=== PATIENT | female | born 1940 | race Caucasian/White ===

== ENCOUNTER 2016-05-14 09:35 | Observation (INO) | payer OTHER ==
[~2016-05-14] VITALS: Ht 165.1 cm; Wt 75.9 kg
[~2016-05-14 09:35] MED LIST: ALEVE220 M2 PO; AMLODIPINE BESY10 MG PO; ASPIR-LOW81 MG PO; ATORVASTATIN CA40 MG PO; CALCIUM500 M4 PO; CLOPIDOGREL75 MG PO; COZAAR25 MG PO; CRAMP TABLET1 EACH PO; LISINOPRIL20 MG PO; LOPRESSOR50 MG PO; OMEPRAZOLE40 M1 PO; PRAVASTATIN SOD40 MG PO; PRAVASTATIN SOD80 MG PO; PRINIVIL20 MG PO; SALINE NASAL SP45 ML BOTH NARES; SYNTHROID75 MCG PO; VITAMIN D31000 UNI2 PO; VITAMIN D31000 UNIT PO
[2016-05-14 09:38] VITALS: BP 149/78
[2016-05-14 10:07] LABS: EOSINOPHIL (%) 6.9 % (0-5); EOSINOPHIL COUNT 0.6 K/uL (0-0.3); HEMATOCRIT 41.3 % (36.0-46.0); IMMATURE GRANULOCYTE (%) 0.2 % (0.0-0.7); IMMATURE GRANULOCYTE COUNT 0.2 K/uL; LYMPHOCYTE COUNT 1.2 K/uL (1.0-2.8); MCH 30.7 PG (29.0-34.0); MCHC 33.4 G/DL (30.0-36.0); MCV 91.8 FL (83-99); MEAN PLAT.VOLUME 9.5 uM^3 (9.5-12.4); MONOCYTE COUNT 0.6 K/uL (0-0.8); NEUTROPHIL (%) 71.7 % (45-76); NEUTROPHIL COUNT 6.2 K/uL (1.8-6.4); PLATELET COUNT 270 K/uL (156-360); RBC DIS.WIDTH-CV 13.5 % (11.8-14.6); RBC DIS.WIDTH-SD 44.3 % (39-53); WHITE BLOOD COUNT 8.7 K/uL (4.1-10.2)
[2016-05-14 10:19] LABS: CHLORIDE 110 mEq/L (99-109); SODIUM 143 mEq/L (136-147)
[2016-05-14 10:21] LABS: GLUCOSE 135 mg/dL (70-99)
[2016-05-14 10:22] LABS: ANION GAP 13 MEQ/L (2-14)
[2016-05-14 10:24] LABS: GFR ESTIMATE (CALCULATED) 39 mL/min/
[2016-05-14 10:25] LABS: UREA NITROGEN (BUN) 29 mg/dL (9-23)
[2016-05-14 10:28] LABS: TROP-I INTERPRETATION NEGATIVE; TROPONIN-I 0.01 ng/mL (0.0-0.30)
[2016-05-14 10:49] VITALS: BP 142/82
[2016-05-14] MEDS ORDERED: NORVASC10 MG PO (11:31)
[2016-05-14] MEDS ORDERED: ASPIR-LOW81 MG PO (11:32)
[2016-05-14] MEDS ORDERED: VIACTIV SOFT C1 EACH PO (11:34)
[2016-05-14] MEDS ORDERED: CLOPIDOGREL75 MG PO (11:36)
[2016-05-14] MEDS ORDERED: LOPRESSOR50 MG PO (11:37)
[2016-05-14] MEDS ORDERED: LOSARTAN POTASS25 MG PO (11:38)
[2016-05-14 12:00] VITALS: BP 144/84
[2016-05-14 13:00] VITALS: BP 144/70
[2016-05-14 15:45] VITALS: BP 130/59
[2016-05-14 18:53] LABS: TROP-I INTERPRETATION NEGATIVE; TROPONIN-I 0.02 ng/mL (0.0-0.30)
[2016-05-14 20:00] VITALS: BP 122/60
[2016-05-15 00:13] VITALS: BP 134/60
[2016-05-15 01:34] LABS: TROP-I INTERPRETATION NEGATIVE; TROPONIN-I 0.02 ng/mL (0.0-0.30)
[2016-05-15 06:41] LABS: ANION GAP 10 MEQ/L (2-14); CHLORIDE 109 MEQ/L (99-109); GFR ESTIMATE (CALCULATED) 46 mL/min/; POTASSIUM 4.3 MEQ/L (3.7-5.4); SAMPLE HEMOLYSIS CHECK 1; SAMPLE ICTERIC CHECK 0; SAMPLE LIPEMIA CHECK 0; SODIUM 141 MEQ/L (136-147); UREA NITROGEN (BUN) 25 mg/dL (9-23)
[2016-05-15 06:46] LABS: GLUCOSE 100 mg/dL (70-99)
[2016-05-15 12:08] VITALS: BP 122/61
== END 2016-05-15 13:09 | disposition home or self-care (01) ==
LOC: EME 09:35 → EDOF 11:34 → 5WEST 15:41
PROVIDERS: Emergency Medicine; Internal Medicine
DX: R55 Syncope and collapse (principal); I10 Essential (primary) hypertension; E03.9 Hypothyroidism, unspecified; E78.5 Hyperlipidemia, unspecified; N17.9 Acute kidney failure, unspecified; K58.9 Irritable bowel syndrome, unspecified; Z86.73 Personal history of transient ischemic attack (TIA), and cerebral infarction without residual deficits; K44.9 Diaphragmatic hernia without obstruction or gangrene; K21.9 Gastro-esophageal reflux disease without esophagitis; Z92.3 Personal history of irradiation; Z88.8 Allergy status to other drugs, medicaments and biological substances; Z82.49 Family history of ischemic heart disease and other diseases of the circulatory system; Z82.0 Family history of epilepsy and other diseases of the nervous system
CPT/HCPCS: 70450; 71010; 80048; 84484; 85025; 87040; 99281; 99285; G0378